=== PATIENT | male | born 1970 | race Caucasian/White ===

== ENCOUNTER 2018-02-06 16:28 | Emergency (ER) | payer SELFPAY ==
[~2018-02-06] VITALS: Ht 182.9 cm; Wt 72.9 kg
[2018-02-06 17:28] LABS: HEMATOCRIT 44.1 % (38.0-50.0); HEMOGLOBIN 15.5 G/DL (12.5-16.6); MCH 31.8 PG (29.0-34.0); MCHC 35.1 G/DL (30.0-36.0); MCV 90.6 FL (86-99); PLATELET COUNT 302 K/uL (156-360); RBC DIS.WIDTH-CV 14.2 % (11.8-14.6); RBC DIS.WIDTH-SD 47.1 % (39-53); RED BLOOD COUNT 4.87 M/uL (4.00-5.50); WHITE BLOOD COUNT 16.1 K/uL (4.1-10.2)
[2018-02-06 17:37] LABS: CHLORIDE 103 mEq/L (99-109); SODIUM 139 mEq/L (136-147)
[2018-02-06 17:39] LABS: GLUCOSE 130 mg/dL (70-99)
[2018-02-06 17:43] LABS: CREATININE 0.8 mg/dL (0.6-1.3); GFR ESTIMATE (CALCULATED) > 59 mL/min/ (58.99-99999)
[2018-02-06 17:44] LABS: UREA NITROGEN (BUN) 15 mg/dL (9-23)
[2018-02-06 17:50] LABS: TROP-I INTERPRETATION NEGATIVE; TROPONIN-I < 0.01 ng/mL (0.0-0.30)
[2018-02-06] MEDS ORDERED: PERCOCET 5/31 TABLET PO (18:33)
[2018-02-06 18:48] VITALS: BP 118/80
== END 2018-02-06 18:56 | disposition home or self-care (01) ==
LOC: EXP 16:28 → EME 16:28 → EXP 18:56
PROVIDERS: Nurse Practitioner Family
PROC: 0HQ0XZZ Repair Scalp Skin, External Approach (ICD-10-PCS; principal; 2018-02-06)
DX: R55 Syncope and collapse (principal); S01.01XA Laceration without foreign body of scalp, initial encounter; R11.2 Nausea with vomiting, unspecified; W18.30XA Fall on same level, unspecified, initial encounter; Y92.480 Sidewalk as the place of occurrence of the external cause; F17.200 Nicotine dependence, unspecified, uncomplicated
CPT/HCPCS: 70450; 71046; 80048; 84484; 85027; 93005; 99281; 99284